=== PATIENT | female | born 1975 | race Caucasian/White ===

== ENCOUNTER 2023-09-18 04:10 | Day surgery (SDC) | payer BC, OTHER ==
[2023-09-12 14:56] VITALS: BMI 28.7
[2023-09-18 12:15] VITALS: TEMP 97.9
[2023-09-18 12:45] VITALS: PULSE 69; RESP 18
[2023-09-18 12:51] VITALS: BP 118/87
== END 2023-09-18 13:18 | disposition home or self-care (01) ==
LOC: JASU-ENDO 04:10
PROVIDERS: ATTEND Internal Medicine Gastroenterology
PROC: 0DB68ZX Excision of Stomach, Via Natural or Artificial Opening Endoscopic, Diagnostic (ICD-10-PCS; 2023-09-18)
PROC: 0DB78ZX Excision of Stomach, Pylorus, Via Natural or Artificial Opening Endoscopic, Diagnostic (ICD-10-PCS; 2023-09-18)
PROC: 0DJD8ZZ Inspection of Lower Intestinal Tract, Via Natural or Artificial Opening Endoscopic (ICD-10-PCS; principal; 2023-09-18 11:00)
DX: Z12.11 Encounter for screening for malignant neoplasm of colon (principal); K29.50 Unspecified chronic gastritis without bleeding
CPT/HCPCS: 43239; G0121; 81025; 88305-TC; 88342-TC